=== PATIENT | male | born 1940 | race Caucasian/White ===

== ENCOUNTER → 2021-02-11 17:39 | Outpatient (BNVA) | payer MEDICARE, SELFPAY | PROVIDERS: Visit Provider Nurse Practitioner Family | DX: I10 Essential (primary) hypertension (principal); R53.83 Other fatigue | CPT/HCPCS: 80053; 80061; 84403; 84443; 85025 ==

== ENCOUNTER → 2022-05-26 11:14 | Outpatient (BNVA) | payer MEDICARE, SELFPAY | PROVIDERS: PCP Family Medicine; Visit Provider Family Medicine | DX: Z00.00 Encounter for general adult medical examination without abnormal findings (principal); N39.0 Urinary tract infection, site not specified; R35.0 Frequency of micturition; I10 Essential (primary) hypertension; E78.5 Hyperlipidemia, unspecified | CPT/HCPCS: 80053; 80061; 81000; 84153; 87086 ==

== ENCOUNTER → 2022-06-02 13:28 | Outpatient (BNVA) | payer MEDICARE, SELFPAY | PROVIDERS: PCP Family Medicine; Visit Provider Clinical Nurse Specialist Adult Health | DX: J06.9 Acute upper respiratory infection, unspecified (principal); U07.1 COVID-19 | CPT/HCPCS: 87400; 87426 ==

== ENCOUNTER 2022-08-06 11:12 | Outpatient (CLI) | payer MEDICARE, SELFPAY ==
--- NOTE | 2022-08-06 11:27 | XR_ITS ---
WS: [id number] Lumbar spine, 3 views, 08/06/2022 Clinical Data: low back pain Comparison: None. Findings: No compression fractures or subluxation is seen. There is degenerative disc narrowing at L5-S1. Anter ior osteophytes are seen from T11 through S1. The transverse processes and SI joints are normal. XR/XR lumbar spine 2-3V* [id number] Impression: 1. Degenerative disc narrowing at L5-S1. 2. Osteophytes T12-S1.
== END 2022-08-06 11:13 | disposition home or self-care (01) ==
PROVIDERS: PCP Family Medicine; Visit Provider Family Medicine
DX: M48.07 Spinal stenosis, lumbosacral region; M25.78 Osteophyte, vertebrae
CPT/HCPCS: 72100

== ENCOUNTER 2022-08-18 06:00 | Outpatient (RCR) | payer MEDICARE, SELFPAY | END 2022-09-16 23:59 | disposition home or self-care (01) | LOC: TPT 06:00 | PROVIDERS: PCP Family Medicine; Visit Provider Family Medicine | DX: M54.50 Low back pain, unspecified (principal) | CPT/HCPCS: 97110; 97162 ==

== ENCOUNTER 2022-09-17 06:00 | Outpatient (RCR) | payer MEDICARE, SELFPAY | END 2022-10-17 23:59 | disposition home or self-care (01) | LOC: TPT 06:00 | PROVIDERS: PCP Family Medicine; Visit Provider Family Medicine | DX: M54.50 Low back pain, unspecified (principal) | CPT/HCPCS: 97110 ==

== ENCOUNTER 2023-02-19 15:42 | Outpatient (CLI) | payer MEDICARE, SELFPAY ==
--- NOTE | 2023-02-19 16:00 | MR_ITS ---
WS: [id number] MRI LUMBAR SPINE NONCONTRAST TECHNIQUE: Sagittal T1, T2 and STIR imaging. Axial T1 and T2 imaging. CLINICAL INFORMATION: oa in back and worsening back pain / failed PT COMPARISON: None. FINDINGS: Mild lumbar curve. No acute compression. No high-grade central canal stenosis. Mild degenerative endp late-type changes throughout the lumbar spine. L1-L2: Mild annular bulging. Slight impingement on the LEFT subarticular recess. Mild facet arthropat hy. Mild LEFT foraminal narrowing. L2-L3: Mild annular bulging with impingement on the LEFT subarticular recess and traversing LEFT L3 n erve root. Mild facet arthropathy. Mild LEFT foraminal narrowing. L3-L4: Mild annular bulging with slight impingement on the traversing RIGHT greater than LEFT L4 nerv e roots. Small RIGHT foraminal protrusion with slight impingement on the exiting RIGHT L3 nerve root. Mild LEFT foraminal narrowing. Moderate facet arthropathy. L4-L5: Mild annular bulging. Impingement traversing RIGHT greater than LEFT L5 nerve roots. Mild face t arthropathy. Mild RIGHT greater than LEFT foraminal narrowing. L5-S1: Mild disc osteophytic ridging. Slight effacement of ventral thecal sac. Mild LEFT greater than RIGHT bony foraminal narrowing. Mild facet arthropathy. Visualized pelvic bony structures: Normal. Paravertebral soft tissues: Normal. Partially evaluated RIGHT renal hemorrhagic cyst measuring 3.5 cm. Partially visualized lobulated LEF T renal cysts. MR/MR lumbar spine wo con* [id number] IMPRESSION: 1. Mild lumbar curve. No acute compression. 2. LEFT subarticular protrusion L2-L3 impinges the traversing LEFT L3 nerve ro ot subarticular recess. Mild LEFT L2-L3 foraminal narrowing with a small LEFT foraminal protrusion. 3. Small RIGHT foraminal protrusion L3-L4 slightly impinges the exiting RIGHT L3 nerve root. Narrowing of the RIGHT L3-L4 subarticular recess. 4. Annular bulging L4-L5 slightly impinges the traversing L5 nerve roots bilat erally. 5. Mild RIGHT L4-L5 bony foraminal narrowing. Mild LEFT L5-S1 bony foraminal n arrowing. 6. Partially visualized enlarged prostate measuring 4.4 CM. Recommend correlat ion PSA.
== END 2023-02-19 15:43 | disposition home or self-care (01) ==
LOC: RAD 15:50
PROVIDERS: PCP Family Medicine; Visit Provider Family Medicine
DX: M43.8X6 Other specified deforming dorsopathies, lumbar region (principal); M51.26 Other intervertebral disc displacement, lumbar region; M51.36 Other intervertebral disc degeneration, lumbar region
CPT/HCPCS: 72148

== ENCOUNTER 2023-04-15 11:04 | Emergency (ER) | payer MEDICARE, SELFPAY ==
[2023-04-15 11:13] VITALS: BP 147/80; PULSE 54; RESP 16; TEMP 36.6; O2SAT 96; BMI 30.8
--- NOTE | 2023-04-15 11:18 | ECG_ITS ---
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 Measurements Intervals [place] Rate: 59 P: 76 MO: 208 QRS: 2 QRSD: 85 T: 44 QT: 396 QTc: 395 Interpretive Statements SINUS BRADYCARDIA WITH FREQUENT SUPRAVENTRICULAR PREMATURE COMPLEXES ABNORMAL RHYTHM ECG No previous ECG available for comparison Electronically Signed On 04-15-2023 19:27:06 CDT by Lois Blackmon M.D. [id number] f
--- NOTE | 2023-04-15 11:59 | XR_ITS ---
WS: [id number] Exam: XR chest 1V portable [id number] Date/Time of Exam: 04/15/2023 11:59 AM Reason For Exam: bradycardia No priors. The lungs are clear and fully inflated. Cardiomediastinal silhouette is unremarkable for portable megan hnique. No pleural effusions. Bony elements are intact. XR/XR chest 1V portable [id number] IMPRESSION: 1. No acute cardiopulmonary finding.
--- NOTE | 2023-04-15 12:01 | ED_ITS ---
HPI - Arrhythmia/Palpitations General: Chief Complaint: Arrhythmia/Palpitations Stated Complaint: low hr Time Seen by Provider: 04/15/23 11:34 History of Present Illness: Patient presents to the ER today with complaints of heart rate in the 30s this morning. Patient said he checked his pulse ox and heart rate this morning and was down in the 30s and his O2 sat was 97%. Patient did state he tired sluggish fatigued and nauseous at that moment. But within a few minutes his symptoms resolved and he figures his heart rate jumped up to normal. Patient says he normally runs in the 40s and 50s with no problems it is never been down in the 30s and felt this way before. Patient does take atenolol 50 mg daily. But he has been on this for a while. This is the first time his heart ever dropped down to the 30s and he felt like this. Patient feels better now with no complaints currently. Review of Systems General: Reports: 10 or more systems reviewed and unremarkable except in HPI and below PFSH ED PFSH: Medical History (Updated 04/15/23 @ 12:10 by Pan Alfonso DO) Hyperlipidemia Hypertension Surgical History No pertinent past surgical history Family History Mother Alzheimers disease Social History Smoking and tobacco status: never smoked Second hand smoke exposure: No Alcohol intake: never Substance/Drug Use: never Lives independently: Yes Household members: spouse Marital status: service: No Current occupational status: retired Current gender identity: Male Physical Exam Const: COMMON NORMALS: no acute distress, average body habitus, patient oriented x3, no limitations, healthy appearing, alert and well nourished HENMT: COMMON NORMALS: normocephalic, atraumatic, hearing grossly normal bilaterally, external ears normal, Normal external nose present and moist oral mucous membranes HEAD & SCALP: normocephalic and atraumatic NOSE: Normal external nose present EXTERNAL EAR: Yes external ears normal Eye: COMMON NORMALS: Equal, round and reactive pupils present, EOMs intact bilaterally, conjunctivae normal and no scleral icterus CONJUNCTIVA: Yes conjunctivae normal PUPIL: Yes Equal, round and reactive pupils present Neck/C-Spine: COMMON NORMALS: full ROM, no lymphadenopathy, supple, no meningeal signs, no JVD and Thyroid normal THYROID: Thyroid normal Chest: COMMONS NORMALS: normal inspection of the chest and normal palpation of entire chest wall Resp: COMMON NORMALS: normal respiratory effort, No retractions, No use of accessory muscles and clear to auscultation bilaterally AUSCULTATION: clear to auscultation bilaterally Cardio: COMMON NORMALS: no JVD, regular rate, regular rhythm, S1 normal heart sound present, S2 normal heart sound present, No gallops present (Cardio), No clicks present (Cardio), No murmurs present (Cardio) and No rub (Cardio) RATE: regular rate RHYTHM: regular rhythm HEART SOUNDS: S1 normal heart sound present and S2 normal heart sound present GI: COMMON NORMALS: Normal to inspection, nondistended, normoactive bowel s ounds present, Soft to palpation, non-tender, No hepatosplenomegaly present and no masses PALPATION: Yes Soft to palpation and Yes No hepatosplenomegaly present : COMMON NORMALS: Yes no CVA tenderness BLADDER/KIDNEY EXAM: Yes no CVA tenderness Back/Pelvis: COMMON NORMALS: no CVA tenderness Neuro: COMMON NORMALS: patient oriented x3 SENSORIUM/ORIENTATION: Yes alert MENINGEAL SIGNS: Yes no meningeal signs Course Vital Signs: Vital signs: Vital Signs Temperature 97.9 F 04/15/23 11:13 Pulse Rate 54 L 04/15/23 11:13 Respiratory Rate 16 04/15/23 11:13 Blood Pressure 147/80 04/15/23 11:13 Pulse Oximetry 96 04/15/23 11:13 MDM - Arrhythmia/Palpitations Medical Decision Making Patient presents to the ER with complaints of symptomatic bradycardia this morning. Patient states his heart is always slow but this morning it got all way down to the 30s and he started getting more symptomatic than normal. Patient is on atenolol which could be causing this. Patient's work-up was benign. We will tell patient to take half dose of his atenolol and keep his appointment already scheduled with his primary care doctor on Wednesday. Patient be discharged from the ER. Differential Diagnosis Unlikely palpitations, anxiety, sinus tachycardia, artial fibrillation, artial flutter, ventricular premature beats, supraventricular tachycardia, ventricular tachycardia or WPW Medical Records I reviewed the patient's medical records. Lab Data I reviewed the patient's lab results. 04/15/23 12:09 04/15/23 12:09 Radiology Impressions Chest X-Ray 04/15/23 11:59 IMPRESSION: 1. No acute cardiopulmonary finding. Laboratory Results WBC 8.9 10^3/uL (4.0-10.0) 04/15/23 12:09 RBC 4.41 10^6/uL (4.1-5.3) 04/15/23 12:09 Hgb 13.3 g/dL (11.7-16.6) 04/15/23 12:09 Hct 39.6 % (42.0-52.0) L 04/15/23 12:09 MCV 89.8 fl (80-94) 04/15/23 12:09 MCH 30.2 pg (28.0-34.0) 04/15/23 12:09 MCHC 33.6 g/dL (30.0-36.0) 04/15/23 12:09 RDW 18.1 % (12.1-15.1) H 04/15/23 12:09 Plt Count 309 10^3/cmm (130-400) 04/15/23 12:09 MPV 11.6 fL (7.4-10.4) H 04/15/23 12:09 Neut % (Auto) 59.1 % 04/15/23 12:09 Lymph % (Auto) 20.7 % 04/15/23 12:09 [place] % (Auto) 16.9 % 04/15/23 12:09 Eos % (Auto) 2.7 % 04/15/23 12:09 Baso % (Auto) 0.3 % 04/15/23 12:09 Neut # (Auto) 5.26 10^3/uL (1.8-7.7) 04/15/23 12:09 Lymph # (Auto) 1.9 10^3/uL (0.8-4.8) 04/15/23 12:09 [place] # (Auto) 1.5 10^3/uL (0.2-0.9) H 04/15/23 12:09 Eos # (Auto) 0.2 10^3/uL (0.0-0.8) 04/15/23 12:09 Baso # (Auto) 0.0 10^3/uL (0.0-0.1) 04/15/23 12:09 Nucleated RBC % (auto) 0.3 % 04/15/23 12:09 Nucleated RBCs # 0.0 /100WBC 04/15/23 12:09 Sodium 143 mmol/L (136-145) 04/15/23 12:09 Potassium 4.4 mmol/L (3.5-5.1) 04/15/23 12:09 Chloride 107 mmol/L (98-107) 04/15/23 12:09 Carbon Dioxide 26 mmol/L (22-29) 04/15/23 12:09 Anion Gap 14.4 (5-19) 04/15/23 12:09 BUN 22 mg/dL (8-23) 04/15/23 12:09 Creatinine 0.8 mg/dL (0.7-1.2) 04/15/23 12:09 GFR Calculation Not Reportable 04/15/23 12:09 Glucose 101 mg/dL (65-115) 04/15/23 12:09 Calculated Osmolality 299 mOsm/kg (285-295) H 04/15/23 12:09 Calcium 9.8 mg/dL (8.5-10.5) 04/15/23 12:09 Magnesium 2.1 mg/dL (1.7-2.3) 04/15/23 12:09 Total Bilirubin 0.7 mg/dL (0.15-1.2) 04/15/23 12:09 AST 21 U/L (0-40) 04/15/23 12:09 ALT 22 U/L (0-41) 04/15/23 12:09 Alkaline Phosphatase 52 U/L (40-130) 04/15/23 12:09 Troponin T Baseline 15 ng/L (0-15) 04/15/23 12:09 Troponin T 120 Minute 14.14 ng/L (0-15) 04/15/23 13:58 Delta Troponin T -0.86 ABS# (0-10) L 04/15/23 13:58 Total Protein 6.2 g/dL (6.6-8.7) L 04/15/23 12:09 Albumin 4.1 g/dL (3.5-5.2) 04/15/23 12:09 Globulin 2.1 g/dL (1.3-4.6) 04/15/23 12:09 TSH 1.08 uIU/mL (0.27-4.20) 04/15/23 12:09 EKG Data EKG 1: I personally reviewed and interpreted this EKG as follows: EKG interpretation date: 04/15/23 EKG interpretation time: 11:18 Prior EKG tracings: not available for review Interpretation: EKG showed ventricular rate 59 bpm, [place] interval 208, QRS duration 95, QTc 396, sinus bradycardia with frequent PVCs, no ST-T wave changes Other EKG comments: Chest X-Ray 04/15/23 11:59 IMPRESSION: 1. No acute cardiopulmonary finding. EKG 2: I personally reviewed and interpreted this EKG as follows: EKG interpretation date: 04/15/23 EKG interpretation time: 14:16 Prior EKG tracings: available for review Interpretation: EKG showed ventricular rate 54, [place] interval 197, QRS duration 96, QTc of 405, sinus bradycardia with frequent PVCs in bigeminal pattern, no ST-T wave changes Other EKG comments: Chest X-Ray 04/15/23 11:59 IMPRESSION: 1. No acute cardiopulmonary finding. Discharge Plan Discharge Patient Disposition: Home Clinical Impression: Symptomatic bradycardia Condition: Stable Prescriptions: No Action tamsulosin 0.4 mg capsule 0.4 mg PO DAILY Qty: 30 11RF tramadol 50 mg tablet 50 mg PO Q6H PRN (Reason: pain) Qty: 60 5RF amlodipine 10 mg tablet 10 mg PO DAILY atenolol 50 mg tablet 50 mg PO BID Men's 50 Plus Multivitamin 400-20-370 mcg Tablet 1 tab PO DAILY Discharge Orders: Discharge ED (Routine); Ordered 04/15/23 Ordered By: Pan Alfonso Referrals: Hakeem Starr MD [Primary Care Provider] - 1 week Patient Instructions: Bradycardia (ED) Activity Restrictions/Additional Instructions: Please decrease your atenolol dose by 50%. Please keep your appointment already scheduled with your primary care doctor. They may want to further evaluate and treat you with changes in medication and/or referral to cardiology. If you have worsening symptoms please feel free to return to the ER. 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
[2023-04-15 12:27] LABS: Basophils % 0.3 %; Eosinophils # 0.2 10^3/uL (0.0-0.8); Eosinophils % 2.7 %; Hematocrit 39.6 % (42.0-52.0); Hemoglobin 13.3 g/dL (11.7-16.6); Lymphocytes # 1.9 10^3/uL (0.8-4.8); Lymphocytes % 20.7 %; Mean Corpuscular HGB Conc 33.6 g/dL (30.0-36.0); Mean Corpuscular Hemoglobin 30.2 pg (28.0-34.0); Mean Corpuscular Volume 89.8 fl (80-94); Mean Platelet Volume 11.6 fL (7.4-10.4); Monocytes # 1.5 10^3/uL (0.2-0.9); Monocytes % 16.9 %; Neutrophils # 5.26 10^3/uL (1.8-7.7); Neutrophils % 59.1 %; Nucleated Red Blood Cells % 0.3 %; Platelet Count 309 10^3/cmm (130-400); Red Blood Count 4.41 10^6/uL (4.1-5.3); Red Cell Distribution Width 18.1 % (12.1-15.1); White Blood Count 8.9 10^3/uL (4.0-10.0)
[2023-04-15 12:44] LABS: Troponin(5th) Baseline 15 ng/L (0-15)
[2023-04-15 13:02] LABS: Alanine Aminotransferase 22 U/L (0-41); Albumin Level 4.1 g/dL (3.5-5.2); Alkaline Phosphatase 52 U/L (40-130); Blood Urea Nitrogen 22 mg/dL (8-23); Calcium 9.8 mg/dL (8.5-10.5); Carbon Dioxide 26 mmol/L (22-29); Chloride 107 mmol/L (98-107); Creatinine Clr Calc Pharmacy 80.0423; Globulin 2.1 g/dL (1.3-4.6); Glucose 101 mg/dL (65-115); Magnesium 2.1 mg/dL (1.7-2.3); Osmolality Calculated 299 mOsm/kg (285-295); Sodium 143 mmol/L (136-145); Thyroid Stimulating Hormone 1.08 uIU/mL (0.27-4.20); Total Bilirubin 0.7 mg/dL (0.15-1.2); Total Protein 6.2 g/dL (6.6-8.7)
[2023-04-15 13:05] LABS: Anion Gap 14.4 (5-19); Aspartate Amino Transferase 21 U/L (0-40); Potassium 4.4 mmol/L (3.5-5.1)
[2023-04-15 13:53] VITALS: BP 140/68; PULSE 60; RESP 16; O2SAT 100
--- NOTE | 2023-04-15 14:00 | ECG_ITS ---
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 Measurements Intervals [place] Rate: 54 P: 34 [place]: 197 QRS: 15 QRSD: 96 T: 60 QT: 420 QTc: 398 Interpretive Statements SINUS BRADYCARDIA WITH FREQUENT ECTOPIC PREMATURE COMPLEXES IN A BIGEMINAL PATTERN ABNORMAL RHYTHM ECG Compared to ECG 04/15/2023 11:18:50 No significant changes Electronically Signed On 04-15-2023 19:28:38 CDT by Lois Blackmon M.D. [id number]
[2023-04-15 14:24] LABS: Troponin 5 2HR 14.14 ng/L (0-15)
[2023-04-15 14:36] LABS: Troponin 5 2HR Delta -0.86 ABS# (0-10)
[2023-04-15 15:13] VITALS: BP 130/70; PULSE 65; RESP 16; O2SAT 100
== END 2023-04-15 15:15 | disposition home or self-care (01) ==
PROVIDERS: Emergency Provider Emergency Medicine; PCP Family Medicine
DX: R00.1 Bradycardia, unspecified (principal)
CPT/HCPCS: 36415; 71045; 80053; 83735; 84443; 84484; 85025; 93005; 99285

== ENCOUNTER → 2023-05-24 16:39 | Outpatient (BNVA) | payer MEDICARE, SELFPAY | PROVIDERS: PCP Family Medicine; Visit Provider Family Medicine | DX: L98.9 Disorder of the skin and subcutaneous tissue, unspecified (principal) | CPT/HCPCS: 88304 ==

== ENCOUNTER → 2023-08-04 11:31 | Outpatient (BNVA) | payer MEDICARE, SELFPAY | PROVIDERS: PCP Family Medicine; Visit Provider Family Medicine | DX: I49.1 Atrial premature depolarization (principal); I10 Essential (primary) hypertension; U07.1 COVID-19 | CPT/HCPCS: 80053; 83735; 84443; 85025 ==

== ENCOUNTER → 2024-05-23 09:05 | Outpatient (BNVA) | payer MEDICARE, SELFPAY | PROVIDERS: PCP Family Medicine; Visit Provider Clinical Nurse Specialist Adult Health | DX: J06.9 Acute upper respiratory infection, unspecified (principal) | CPT/HCPCS: 87400; 87426 ==